=== PATIENT | female | born 1995 | race Caucasian/White ===

== ENCOUNTER 2016-11-14 01:11 | Emergency (ER) | payer OTHER ==
[~2016-11-14] VITALS: Ht 160 cm; Wt 54.4 kg
[~2016-11-14 01:11] MED LIST: NORCO 5-325 TA1 EACH PO; PRENATAL TABLE1 EAC1 PO; PROAIR HFA8.5 GM INH; ZOFRAN ODT4 MG PO
[2016-11-14] MEDS ORDERED: DICLOFENAC SODI75 MG PO (02:08)
== END 2016-11-14 02:26 | disposition home or self-care (01) ==
LOC: ED 01:11
DX: M94.0 Chondrocostal junction syndrome [Tietze] (principal); J45.909 Unspecified asthma, uncomplicated
CPT/HCPCS: 71101; 99283

== ENCOUNTER 2017-03-17 17:13 | Emergency (ER) | payer OTHER ==
[~2017-03-17 17:13] MED LIST changes: +DICLOFENAC SODI75 MG PO
[2017-03-17] MEDS ORDERED: IBUPROFEN600 MG PO (18:43)
[2017-03-17] MEDS ORDERED: NORCO 5-325 TA1 EACH PO (18:43)
== END 2017-03-17 19:33 | disposition home or self-care (01) ==
LOC: ED 17:13
DX: S01.81XA Laceration without foreign body of other part of head, initial encounter (principal); S40.012A Contusion of left shoulder, initial encounter; S00.81XA Abrasion of other part of head, initial encounter; J45.909 Unspecified asthma, uncomplicated; Z79.899 Other long term (current) drug therapy; V29.9XXA Motorcycle rider (driver) (passenger) injured in unspecified traffic accident, initial encounter
CPT/HCPCS: 70450; 71045; 72170; 73030; 80053; 85025; 85610; 96361; 96374; 96375; 99284; J1885; J2405; J7030

== ENCOUNTER 2020-02-29 16:45 | Emergency (ER) | payer OTHER ==
[~2020-02-29] VITALS: Ht 160 cm; Wt 54.4 kg
[~2020-02-29 16:45] MED LIST changes: +IBUPROFEN600 MG PO
== END 2020-02-29 18:10 | disposition left against medical advice (07) ==
LOC: ED 16:45
DX: Z53.21 Procedure and treatment not carried out due to patient leaving prior to being seen by health care provider (principal)

== ENCOUNTER 2021-09-13 03:23 | Emergency (ER) | payer OTHER ==
[~2021-09-13] VITALS: Ht 160 cm; Wt 67.1 kg
[2021-09-13] MEDS ORDERED: ONDANSETRON ODT4 MG PO (04:47)
[2021-09-13] MEDS ORDERED: ACID-PEP20 MG PO (04:47)
== END 2021-09-13 05:26 | disposition home or self-care (01) ==
LOC: ED 03:23
DX: O21.0 Mild hyperemesis gravidarum (principal); Z3A.14 14 weeks gestation of pregnancy; O99.512 Diseases of the respiratory system complicating pregnancy, second trimester; J45.909 Unspecified asthma, uncomplicated; O99.612 Diseases of the digestive system complicating pregnancy, second trimester; K21.9 Gastro-esophageal reflux disease without esophagitis
CPT/HCPCS: 36415; 80053; 85025; J2405; J7121

== ENCOUNTER 2021-10-16 18:37 | Emergency (ER) | payer OTHER ==
[~2021-10-16] VITALS: Ht 160 cm; Wt 67.1 kg
[~2021-10-16 18:37] MED LIST changes: +ACID-PEP20 MG PO; +ONDANSETRON ODT4 MG PO
[2021-10-16] MEDS ORDERED: AMOXICILLIN500 MG PO (21:41)
== END 2021-10-16 21:55 | disposition home or self-care (01) ==
LOC: ED 18:37
DX: K08.89 Other specified disorders of teeth and supporting structures (principal)
CPT/HCPCS: 99282

== ENCOUNTER 2022-03-28 00:04 | Inpatient (IN) | payer OTHER ==
[~2022-03-28] VITALS: Ht 160 cm; Wt 75.8 kg
--- NOTE | ~2022-03-28 | OR ---
[facility] [address], [place] [address] Draft DATE OF OPERATION: 03/28/2022 SURGEON: Jeanette Le DO ORDER ENTRY: Michelle Oliver M.D. PROCEDURE: Repeat low transverse . PREOPERATIVE DIAGNOSES: 1. Spontaneous onset of labor. 2. History of prior . 3. Spontaneous rupture of membranes. 4. Methamphetamine use. 5. Asthma. 6. Depression. 7. At 38 weeks' gestation. POSTOPERATIVE DIAGNOSES: 1. Term , delivered. 2. History of prior . 3. Methamphetamine use. 4. Asthma. 5. Intrapartum hemorrhage. ANESTHESIA: General. BLOOD LOSS: 1000 mL. INDICATIONS: The patient is a 26-year-old, G2, P1-0-0-1, who presented at 38 and 4/7 weeks, complaints of contractions. Upon arrival, she was found to be 3 cm dilated, unchanged from cervical check in the office the previous day. She made no cervical change, was about to be discharged home and she went to the restroom, remained in the restroom for approximately 45 minutes and upon exiting complained of additional pain, was rechecked, found to be 4 cm with bloody show. She then made rapid change to 5 cm, had spontaneous rupture of membranes, yielding moderate amount of moderate meconium fluid and was PATIENT NAME: HIMANSHU HIGGINS OPERATIVE REPORT DATE OF : [birth year] REPORT #: [id number] PHYSICIAN: JEANETTE LE DO PCP: NO PRIMARY CARE PHYSICIAN REPORT IS CONFIDENTIAL AND NOT TO BE RELEASED WITHOUT AUTHORIZATION [facility] [address], [place] [address] Draft urgently consented for repeat . She had previously been scheduled for repeat on March 31. Consents were signed and the patient was taken back to the operating room. DESCRIPTION OF PROCEDURE: The patient was taken to the operating room, where she was given 2 g Ancef and 500 mg azithromycin IV. She was writhing in bed and unable to sit for spinal anesthesia and due to the patient intolerance, full vaginal prep could not be performed. Mcconnell catheter was placed. Abdominal prep was completed. She was draped in normal sterile fashion as she was positioned in supine position with a leftward tilt. She was placed under general anesthesia incision was made with a scalpel through the patient's prior Pfannenstiel scar. This was carried down to the underlying layer of fascia, which was nicked in midline, extended laterally with Choi scissors. Inferior margin of fascia was grasped and elevated with Ronnie clamps and underlying rectus muscle was dissected off bluntly and sharply with Choi scissors. The superior margin of fascia was then grasped and elevated, underlying rectus muscle was dissected off bluntly and sharply with Choi scissors. Peritoneum was entered bluntly and extended with lateral digital traction. Siva retractor was placed after confirming no intraabdominal adhesions and hysterotomy was made with a scalpel. Uterus was entered bluntly, digitally and incision was extended laterally with superior and inferior gentle digital traction. Infant's head was easily elevated to the level of the incision, delivered through cord was immediately doubly clamped and cut. Baby was handed off to waiting nursery team after giving a spontaneous cry. Segment of cord was doubly clamped and cut for cord gases. Cord blood was collected for type and Tiana. Placenta was delivered and noted to be intact with marginal cord insertion. Uterus was noted to be atonic. Pitocin was bolused and Cytotec suppository was placed. Uterus was cleared of clots and debris and hysterotomy was closed in a double-layer closure, first with 0-Monocryl in a running locked fashion, secondly with 0-Monocryl in an imbricating manner. Excellent hemostasis was noted. Following closure, uterine tone was improving, but still poor. A 1 g TXA was administered and fundal massage was performed, at which time uterine tone began to improve significantly. The pelvis was suction irrigated with warm sterile saline. Uterus, tubes, and ovaries were inspected with normal findings as noted below and uterine tone remained normal moving forward. Siva retractor was removed. Peritoneum was closed with 2-0 Vicryl in a running fashion. Rectus muscle was reapproximated with 0-Vicryl in a simple interrupted fashion. Perforating vessels were cauterized with Bovie cautery and this layer was suction irrigated with warm sterile saline with excellent hemostasis noted. Fascia was closed with 0-Vicryl in a running fashion working first from right apex to midline and from left apex to midline meeting in the middle. Subcutaneous layer was irrigated with warm sterile saline. Suction irrigated and perforating vessels were cauterized with Bovie cautery. This layer was reapproximated with 3-0 Vicryl. At this point, Anesthesia notified of the patient's desaturation. Skin was closed with skin clips, while anesthesia administered PATIENT NAME: HIMANSHU HIGGINS OPERATIVE REPORT DATE OF : [birth year] REPORT #: [id number] PHYSICIAN: JEANETTE LE DO PCP: NO PRIMARY CARE PHYSICIAN REPORT IS CONFIDENTIAL AND NOT TO BE RELEASED WITHOUT AUTHORIZATION [facility] [address] [place] [address] Draft ondansetron, Toradol, and rocuronium with significant improvement in the patient's oxygen saturation. Uterus was then Crede'd with moderate return of clots. Sponge, instrument, and lap counts were all correct. The patient remained stable and remained in the OR for placement of TAP blocks. FINDINGS: Viable term male in the left occiput anterior position. Normal-appearing uterus, bilateral tubes and ovaries. DO WARD Mejia/MODL /[id number] Copies: ~ PATIENT NAME: HIMANSHU HIGGINS OPERATIVE REPORT DATE OF : [birth year] REPORT #: [id number] PHYSICIAN: JEANETTE LE DO PCP: NO PRIMARY CARE PHYSICIAN REPORT IS CONFIDENTIAL AND NOT TO BE RELEASED WITHOUT AUTHORIZATION
[~2022-03-28 00:04] MED LIST changes: +AMOXICILLIN500 MG PO; +FAMOTIDINE20 MG PO
--- NOTE | 2022-03-28 07:19 | NUR ---
0530 covid swab done to both nares and sent to in house lab.
--- NOTE | 2022-03-28 07:33 | NUR ---
03/28/22 0733 Odilia Dodd LE 0719: PT IS BROUGHT IN [facility] ROOM 103 BY OR CREW AND REAL ESTATE INVESTMENT ANALYST. PT IS RESTLESS UPON ENTERING THE ROOM. LE 0725: PT IS STARTING TO CALM DOWN AND RELAX. OR CREW REMAINS AT BEDSIDE SECOND IN RECOVERY. LE 0730: PT IS SLEEPING, REACTS TO STIMULUS. REAL ESTATE INVESTMENT ANALYST STILL AT BEDSIDE, DOING SEPERATE ASSESSMENT.
--- NOTE | 2022-03-29 08:00 | PR ---
[facility] [address] [place], [place] [address] Signed PP Progress Notes Datetime Report Generated by VONDA: 03/29/2022 08:00 SUBJECTIVE: [id number] Pain: Within Normal Limits Nausea/Vomiting: Denies Bowel Movement: Yes Vital Signs: [id number] Vital Signs: Reviewed Cardiovascular: Normal Respiratory: Normal Abdomen/Uterus: Normal Lochia: Normal Extremities: Normal Exam Comments: Gen: NAD, resting in bed Lungs: No dyspnea/ retractions CV: RRR Abd: SNTND, FFBU, binder in place Incision: c/d/i, dressing still in place, no strikethrough Ext: no edema, neg Tami's BL IMPRESSION/PLAN/PROCEDURES: [id number] Impression: Normal Progression Plan: Discharge Progress Notes: Pt is a 26 yo [id number] POD#1 s/p RLTCS under general anesthesia -complicated by methamphetamine positive urine -baby transferred to NICU for respiratory distress -hgb 9.6 this am from 12.6 on admission: acute blood loss anemia due to intrapartum hemorrhage, received TXA 1g and cytotec 1000mcg pr -progressing well this morning. Pt was planning to leave AMA yesterday afternoon, prior to dangling/ street catheter removal. She agreed to stay to 24h and until milestones were met then was adamant about leaving to be with baby. We discussed my concerns particularly with regard to pain management as the TAP blocks wear off. She agreed to continue use of ice, abdominal binder, scheduled motrin/ tylenol, and percocet only for breakthrough pain. She reports she will be staying in a hotel in [facility] with a friend any time she is not in the NICU with her baby and agrees to report to the ER if any concerns arise. Follow-up in office planned for 5d for staple removal. Signing Physician: Jeanette Le DO *Electronically Signed* 03/29/22 08 JEANETTE LE DO PATIENT NAME: HIMANSHU HIGGINS PROGRESS NOTE DATE OF : [birth year] PHYSICIAN: JEANETTE LE DO RPT #: [id number] REPORT IS CONFIDENTIAL AND NOT TO BE RELEASED WITHOUT AUTHORIZATION [address] [address] Signed Copies: ~ *Electronically Signed* 03/29/22 08 JEANETTE LE DO PATIENT NAME: HIMANSHU HIGGINS PROGRESS NOTE DATE OF : 93 PHYSICIAN: JEANETTE LE DO [facility] [place] #: [id number] REPORT IS CONFIDENTIAL AND NOT TO BE RELEASED WITHOUT AUTHORIZATION
== END 2022-03-29 11:30 | disposition home or self-care (01) | DRG 787 ==
LOC: FBCO 00:04 → FBC 05:10
PROVIDERS: ADMIT Obstetrics & Gynecology; ATTEND Obstetrics & Gynecology
PROC: 10D00Z1 Extraction of Products of Conception, Low, Open Approach (ICD-10-PCS; principal; 2022-03-28 06:21)
DX: O34.211 Maternal care for low transverse scar from previous cesarean delivery (principal); D62 Acute posthemorrhagic anemia; O99.324 Drug use complicating childbirth; O99.344 Other mental disorders complicating childbirth; Z20.822 Contact with and (suspected) exposure to COVID-19; O99.52 Diseases of the respiratory system complicating childbirth; J45.909 Unspecified asthma, uncomplicated; F32.A Depression, unspecified; Z3A.38 38 weeks gestation of pregnancy; Z37.0 Single live birth; F12.90 Cannabis use, unspecified, uncomplicated; O67.9 Intrapartum hemorrhage, unspecified; O99.03 Anemia complicating the puerperium; F15.90 Other stimulant use, unspecified, uncomplicated
CPT/HCPCS: 01961; 36415; 59025; 76942; 82803; 85027; 86850; 86900; 86901; 87502; A9270; C9803; G0463; J0456; J0690; J1885; J2001; J2370; J2405; J2590; J2704; J3010; J3105; J7121; U0003

== ENCOUNTER 2024-12-18 05:44 | Emergency (ER) | payer OTHER ==
[~2024-12-18] VITALS: Ht 152.4 cm; Wt 68.0 kg
[2024-12-18 06:43] LABS: BASOPHILS 1.0 % (0.1-1.2); EOSINOPHILS 3.8 % (0.7-5.8); LYMPHOCYTES 31.8 % (19.3-51.7); MCH 31.1 PG (25.6-32.2); MCHC 33.0 g/dL (32.2-35.5); MCV 94.3 fL (79.4-94.8); MONOCYTES 6.6 % (4.7-12.5); NEUTROPHILS 56.5 % (34.0-71.1); RBC 3.86 M/uL (3.93-5.22)
[2024-12-18 07:16] LABS: ABO B; RH POSITIVE
[2024-12-18 07:20] LABS: ALT (SGPT) 18.0 U/L (14-59); AST (SGOT) 11.0 U/L (15-37); GLOMERULAR FILTRATION RATE,EST 127.0 mL/min (>60); PROTEIN, TOTAL 7.0 g/dL (6.4-8.2); UREA NITROGEN 9.0 mg/dL (7-18)
[2024-12-18 08:05] LABS: BLOOD/HGB, URINE MODERATE (Negative); KETONE, URINE NEGATIVE (Negative); LEUK ESTERASE, URINE NEGATIVE (negative); NITRITE, URINE NEGATIVE (negative)
[2024-12-18 08:17] LABS: CASTS, URINE NONE SEEN \\lpf; CRYSTALS, URINE NONE SEEN (0-1+); EPITHELIAL CELLS, URINE SQUAMOUS 3+ /lpf (0-1+)
[2024-12-18 08:18] LABS: BACTERIA, URINE RARE /hpf (negative); REFLEX CULTURE, URINE No (No)
[2024-12-18 09:03] VITALS: BP 114/81
== END 2024-12-18 09:00 | disposition home or self-care (01) ==
LOC: ED 05:44
PROVIDERS: Family Medicine
DX: O20.0 Threatened abortion (principal); Z3A.10 10 weeks gestation of pregnancy; J45.909 Unspecified asthma, uncomplicated; Z87.891 Personal history of nicotine dependence
CPT/HCPCS: 36415; 76801; 76817; 80053; 81001; 84702; 85025; 86900; 86901; 99284-25